=== PATIENT | female | born 1975 | race Caucasian/White ===

== ENCOUNTER → 2022-01-29 14:12 | Outpatient (CLI) | payer BC, SELFPAY ==
--- NOTE | ~2022-01-29 | MM_ITS ---
EXAMINATION: MM screening jossue BI w blue HISTORY: Screening mammogram TECHNIQUE: Craniocaudal and mediolateral oblique 3-D tomosynthesis images were obtained and synthetic 2-D images were generated. CAD analysis was submitted and interpreted. COMPARISON: 06/05/2010 bilateral mammogram. BREAST PARENCHYMAL COMPOSITION: There are scattered areas of fibroglandular density. FINDINGS: There is no evidence of suspicious mass, calcification, or architectural distortion to sugg est malignancy in either breast. There has been no suspicious interval change. IMPRESSION: 1. No mammographic evidence of malignancy. 2. Recommend routine screening mammography in one year. BI-RADS Category 1: Negative Reviewed, dictated and finalized at location A.
== END ==
PROVIDERS: PCP Physician Assistant Medical; Visit Provider Obstetrics & Gynecology Gynecology
DX: Z12.31 Encounter for screening mammogram for malignant neoplasm of breast (principal)
CPT/HCPCS: 77063; 77067

== ENCOUNTER 2023-06-02 12:31 | Outpatient (CLI) | payer BC, SELFPAY ==
--- NOTE | ~2023-06-02 | MR_ITS ---
EXAMINATION: MR cervical spine wo con DATE: 06/02/2023 13:19 INDICATION: Paresthesias of skin. TECHNIQUE: Magnetic resonance imaging (MRI) of the cervical spine was performed without intravenous c ontrast. COMPARISON: None FINDINGS: There is mild kyphosis of cervical spine. Vertebral body heights are normal. There is mildl y decreased disc height at C4-C5, C5-C6, and C6-C7. The spinal cord signal intensity is normal. The f ollowing disc levels are specifically discussed: C2-C3: The disc does not extend beyond the endplate margin. There is no uncovertebral joint osteoarth ritis. There is severe right and mild left facet joint osteoarthritis. There is mild right neural for aminal stenosis. There is no central canal stenosis. C3-C4: The disc does not extend beyond the endplate margin. There is mild bilateral uncovertebral judith nt osteoarthritis. There is mild bilateral facet joint osteoarthritis. There is mild bilateral neural foraminal stenosis. There is no central canal stenosis. C4-C5: The disc is bulging. There is moderate bilateral uncovertebral joint osteoarthritis. There is mild right and severe left facet joint osteoarthritis. There is mild bilateral neural foraminal steno sis. There is mild central canal stenosis. C5-C6: The disc is bulging. There is severe bilateral uncovertebral joint osteoarthritis. There is se farida bilateral facet joint osteoarthritis. There is mild bilateral neural foraminal stenosis. There i s mild central canal stenosis. C6-C7: The disc is bulging. There is mild bilateral uncovertebral joint osteoarthritis. There is carson re bilateral facet joint osteoarthritis. There is mild bilateral neural foraminal stenosis. There is mild central canal stenosis. C7-T1: The disc does not extend beyond the endplate margin. There is no uncovertebral joint osteoarth ritis. There is severe bilateral facet joint osteoarthritis. There is mild bilateral neural foraminal stenosis. There is no central canal stenosis. IMPRESSION: 1. Moderate cervical spondylosis. Reviewed, dictated and finalized at location E. CT MARKETING MANAGER
--- NOTE | ~2023-06-02 | MR_ITS ---
MRI of the brain Clinical History: Headache Technique: Axial and sagittal T1-weighted images were acquired. These were followed by axial T2-weigh tamar, diffusion weighted, gradient, and FLAIR images. Following intravenous administration of 19 cc Mu ltiHance gadolinium, T1-weighted fat-sat imaging was performed in the axial and coronal planes. Findings: There is no acute infarct, intracranial hemorrhage, or mass lesion. There are focal white m atter lesions predominantly in the subcortical white matter, most compatible with chronic microvascul ar ischemic change. Ventricles and subarachnoid spaces are unremarkable. Orbits are unremarkable. Paranasal sinuses and m astoid air cells are clear. Major intracranial flow voids are intact. Sagittal midline structures are intact. No abnormal postcontrast enhancement identified. IMPRESSION: No acute abnormality evident. Probable mild chronic microvascular ischemic changes. Correlate for any possibility of demyelinating disease, though this is felt to be less likely. Reviewed, dictated and finalized at [facility]. NE CONTENT EDITOR IMPRESSION: No acute abnormality evident. Probable mild chronic microvascular ischemic changes. Correlate for any possibi lity of demyelinating disease, though this is felt to be less likely.
== END 2023-06-02 12:32 ==
LOC: MICIMG 12:32
PROVIDERS: PCP Physician Assistant Medical; Visit Provider Physician Assistant Medical
DX: G44.53 Primary thunderclap headache (principal); R20.2 Paresthesia of skin; M47.22 Other spondylosis with radiculopathy, cervical region
CPT/HCPCS: 70553; 72141; A9577

== ENCOUNTER 2024-02-25 13:45 | Outpatient (CLI) | payer BC, SELFPAY ==
--- NOTE | ~2024-02-25 | MM_ITS ---
EXAMINATION: MM screening [facility] BI w blue HISTORY: Screening TECHNIQUE: Craniocaudal and mediolateral oblique 3-D tomosynthesis images were obtained and synthetic 2-D images were generated. CAD analysis was submitted and interpreted. COMPARISON: 01/29/2022 BREAST PARENCHYMAL COMPOSITION: Not dense: There are scattered areas of fibroglandular density. FINDINGS: There is a new mass in the upper outer quadrant of the right breast, middle third, which is partially obscured by fibroglandular tissue. The left breast is stable without evidence for malignan cy. IMPRESSION: 1. New right breast mass upper outer quadrant, middle third. 2. Additional mammographic views and possible breast ultrasound are recommended. BI-RADS Category 0: Incomplete: Needs additional imaging evaluation. Reviewed, dictated and finalized at location B. IMPRESSION: 1. New right breast mass upper outer quadrant, middle third. 2. Additional mammographic views and possible breast ultrasound are recommended . BI-RADS Category 0: Incomplete: Needs additional imaging evaluation.
== END 2024-02-25 13:46 | disposition home or self-care (01) ==
PROVIDERS: PCP Physician Assistant Medical; Visit Provider Physician Assistant Medical
DX: Z12.31 Encounter for screening mammogram for malignant neoplasm of breast (principal); R92.8 Other abnormal and inconclusive findings on diagnostic imaging of breast
CPT/HCPCS: 77063; 77067

== ENCOUNTER 2024-03-07 13:35 | Outpatient (CLI) | payer BC, SELFPAY ==
--- NOTE | ~2024-03-07 | XR_ITS ---
3 VIEWS LUMBAR SPINE Ordering provider: Sam Selby MD History: . M54.9 - Dorsalgia, unspecified . Comparison: April 13, 2013 FINDINGS: VERTEBRAL BODIES: No visible fracture or subluxation. Degenerative changes of the spine. DISK SPACES: Narrowing of the disc L2-L3, L3-L4, L4-L5 and L5-S1. Facet joint disease of the level of L4-L5 and L5-S1. SOFT TISSUES: Normal. IMPRESSION: No acute osseous abnormality lumbar spine. Multilevel degenerative disc disease. Reviewed, dictated and finalized at location A.
== END 2024-03-07 13:36 | disposition home or self-care (01) ==
LOC: MICIMG 13:36
PROVIDERS: PCP Physician Assistant Medical; Visit Provider Anesthesiology Pain Medicine
DX: M51.369 Other intervertebral disc degeneration, lumbar region without mention of lumbar back pain or lower extremity pain (principal)
CPT/HCPCS: 72114

== ENCOUNTER 2024-03-13 08:49 | Outpatient (CLI) | payer BC, SELFPAY ==
--- NOTE | ~2024-03-13 | MMUS_ITS ---
EXAMINATION: MM diagnostic jossue RT w blue, US breast RT limited HISTORY: Right breast mass TECHNIQUE: Additional 3-D tomosynthesis images of the right breast were performed and synthetic 2-D i mages were generated. CAD analysis was submitted and interpreted. High resolution limited right breas t ultrasound was performed. COMPARISON: 02/25/2024 BREAST PARENCHYMAL COMPOSITION:Not Dense. There are scattered areas of fibroglandular density. FINDINGS: MAMMOGRAPHIC FINDINGS: Spot compression views demonstrate a persistent circumscribed low-density mass at the upper, outer as pect measuring 7 mm in diameter. ULTRASOUND: At the 10:00 position right breast, 5 cm from the nipple, there is a 7 mm simple anechoic cyst. There is an adjacent 3 mm hypoechoic mass, not definite anechoic. IMPRESSION: 3 mm hypoechoic mass at the 10:00 position right breast, 5 cm from the nipple. Adjacent 5 mm stable cyst. Six-month follow-up ultrasound recommended to reassess. BI-RADS category 3, probably benign findings. Reviewed, dictated and finalized at location . IMPRESSION: 3 mm hypoechoic mass at the 10:00 position right breast, 5 cm from the nipple. Adjacent 5 mm stable cyst. Six-month follow-up ultrasound recommended to reass ess. BI-RADS category 3, probably benign findings.
== END 2024-03-13 08:50 | disposition home or self-care (01) ==
LOC: CHSIMG 08:53
PROVIDERS: PCP Physician Assistant Medical; Visit Provider Physician Assistant Medical
DX: N63.10 Unspecified lump in the right breast, unspecified quadrant (principal)
CPT/HCPCS: 76642; 77061; 77065; G0279

== ENCOUNTER 2024-09-11 13:27 | Outpatient (CLI) | payer BC, SELFPAY ==
--- NOTE | ~2024-09-11 | US_ITS ---
EXAMINATION TYPE: US breast RT limited COMPARISON: 03/05/2024 REASON FOR STUDY: N63.10 - Unspecified lump in the right breast, unspecifie... TECHNIQUE: Targeted sonographic evaluation of the right breast was performed. INTERPRETATION: There is a 5 mm cyst at the 10:00 position right breast, 5 cm from the nipple. There is an adjacent a dditional 4 mm cyst in this region. IMPRESSION: Stable subcentimeter cysts at the 10:00 position right breast, as above. BI-RADS CATEGORY: BI-RADS 2: Benign Reviewed, dictated and finalized at location .
--- OUTSIDE RECORDS SUMMARY | 2024-09-11 15:15 | XMS_ITS | Encounter Summary ---
Author Organization [facility] Address [address] [place] [address] Care Team Providers Care Cable Supervisor Name Role Phone January Messer Primary Care Provider [phone] Encounter Details Date Type Department Care Team (Latest Contact Info) Description 12/16/2023 [place] [employer] Message Enc [facility] Multispecialty Care - [address], [address] [place] [phone] Franchise Fundt, [facility] Provider SLEEP STUDY RESULTS Social History Tobacco Use Types Packs/Day Years Used Date Smoking Tobacco: Never Smokeless Tobacco: Never Alcohol Use Standard Drinks/Week Comments Yes 0 (1 standard drink = 0.6 oz pur e alcohol) socially Comments No Sex and Gender Information Value Date Recorded Sex Assigned at Not on file Legal Sex Female 7:37 PM CDT Gender Identity Not on file Sexual Orientation Not on file documented as of this encounter Plan of Treatment Not on file documented as of this encounter Visit Diagnoses Not on filedocumented in this encounter Care Teams Cable Supervisor Relationship Specialty Start Date End Date January Messer PA [address] [place] [id number] PCP - General PHYSICIAN BRANCH STORE MANAGER 05/14/22 documented as of this encounter
--- OUTSIDE RECORDS SUMMARY | 2024-09-11 15:15 | XMS_ITS | Clinical Summary ---
Author Organization [facility] Address [address] [place] [address] Care Team Providers Care Transplanter Orchid Name Role Phone Gui Tsang MD Primary Care Provider [phone] Source Comments [facility],non-owned Affiliates and Associated Physician Practices is amultiple site organization consisting of ambulatory clinics and hospital sitesin [place], [place], [place] and [place]. This disclosure is being madepursuant to the Care Everywhere program and may not contain all information available regarding this patient. Last updated 18.[facility] Allergies Active Allergy Reactions Criticality Noted Date Comments Sulfa Drugs Itching Low 03/31/2012 Active Problems Problem Noted Date Diagnosed Date Pain in joint 03/24/2012 Family History Medical History Relation Name Comments Fibromyalgia Maternal Aunt Fibromyalgia Maternal Grandmother Arthritis - Osteo Mother Arthritis - Rheumatoid Mother Fibromyalgia Mother Arthritis - Osteo Other uncle Fibromyalgia Sister Thyroid Disease Sister Relation Name Status Comments Maternal Aunt Maternal Grandmother Mother Other Sister Social History Tobacco Use Types Packs/Day Years Used Date Smoking Tobacco: Never Alcohol Use Standard Drinks/Week Comments Yes 0.8 (1 standard drink = 0.6 oz p ure alcohol) Comments Unknown Sex and Gender Information Value Date Recorded Sex Assigned at Not on file Legal Sex Female 6:48 PM FOOD PROCESSOR Gender Identity Not on file Sexual Orientation Not on file Plan of Treatment Health Maintenance Due Date Last Done Comments COLOGUARD (AGES 45-75) - COL ON CA SCREENING [address] COLONOGRAPHY - COLON CA SCREENING 1976 FIT - COLON CA SCREENING 1976 FLEX SIG - COLON CA SCREENING 1976 LIPID TESTING 1976 MAMMOGRAM 1976 PAP SMEAR 1976 HIV SCREENING 02/11/1991 HEPATITIS C SCREENING 02/07/1994 DTAP/TDAP/TD VACCINES (1 - Tdap) 02/11/1995 HEPATITIS B VACCINE (1 of 3 - 19+ 3-dose series) 02/11/1995 COVID-19 VACCINE (1 - 2023-2 5 season) 2024 DEPRESSION SCREENING 05/17/2024 INFLUENZA VACCINE (Season Ended) 2025 05/02/2009 ZOSTER VACCINE (1 of 2) 02/11/2026 COLONOSCOPY - COLON CA SCREENING 08/10/2033 08/11/2023, 08/11/2023 Colorectal Cancer Screening 08/10/2033 HIB VACCINE Aged Out No longer eligi ble based on patient's age to complete this topic HPV VACCINE Aged Out No longer eligi ble based on patient's age to complete this topic MENINGOCOCCAL (Group B) VACCINE SHARED DECISION-MAKING Aged Out No longer eligible based on patient's age to complete this topic MENINGOCOCCAL GROUPS A/C/Y/W VACCINE Aged Out No longer eligible b ased on patient's age to complete this topic PNEUMOCOCCAL VACCINE Aged Out No long er eligible based on patient's age to complete this topic Care Teams Transplanter Orchid Relationship Specialty Start Date End Date Gui Tsang MD [address] [place] [id number] PCP - General 01/05/12
--- OUTSIDE RECORDS SUMMARY | 2024-09-11 15:15 | XMS_ITS | Encounter Summary ---
Author Organization [facility] Address [address] [place] [address] Care Team Providers Care Welfare Manager Name Role Phone January Messer Primary Care Provider [phone] Encounter Details Date Type Department Care Team (Late st Contact Info) Description 07/05/2024 Therapy Plan [facility] [address] [place], [place] [phone] January Messer PA [address] [place] [address] Social History Tobacco Use Types Packs/Day Years [...] documented as of this encounter Visit Diagnoses Diagnosis Iron deficiency anemia, unspecified iron deficiency anemia type- Primary documented in this encounter Care Teams Welfare Manager Relationship Specialty Start Date End Date January Messer PA [address] [place] [phone] PCP - General PHYSICIAN WOOD MACHINIST 05/14/22 documented as of this encounter
--- OUTSIDE RECORDS SUMMARY | 2024-09-11 15:15 | XMS_ITS | Encounter Summary ---
Author Organization [facility] Address [address] [place] [address] Care Team Providers Care Chassis Mechanic Name Role Phone January Messer Primary Care Provider [phone] Encounter Details Date Type Department Care Team (Late st Contact Info) Description 12/13/2023 [employer] Message [facility] Multispecialty Care - [address], [address] [place] [phone] [employer], [facility] Provider results Social History Tobacco Use Types Packs/Day Years [...] on filedocumented in this encounter Care Teams Chassis Mechanic Relationship Specialty Start Date End Date January Messer PA [address] [place] [id number] PCP - General PHYSICIAN SERVICE DEVELOPER 05/14/22 documented as of this encounter
--- OUTSIDE RECORDS SUMMARY | 2024-09-11 15:15 | XMS_ITS | Clinical Summary ---
Author Organization [facility] Address [address] [place] [address] Care Team Providers Care Service Line Layer Name Role Phone January Messer Primary Care Provider [phone] Allergies Active Allergy Reactions Criticality Noted Date Comments Sulfa Antibiotics Rash Low 11/01/2020 Medications naltrexone-buPR OPion ER (CONTRAVE) 12 hr tablet Take 2 tablets by mouth 2 (two) times daily. Active ALPRAZolam 0.25 MG tablet Take 1 tablet (0.25 mg total) by mouth 3 (three) times daily as needed for Sleep. Active ferrous gluconate (FERGON) 324 (37.5 Fe) MG tablet Take 1 tablet (324 mg total) by mouth daily. 05/05/20 22 Active atorvastatin (LIPITOR) 20 MG tablet Take 1 tablet (20 mg total) by mouth nightly at bedtime. 06/03/19 24 Active carisoprodol (SOMA) 350 MG tablet Take 1 tablet (350 mg total) by mouth 3 (three) times daily as needed for Muscle Spasms. 05/24/19 24 Active HYDROcodone-myranda taminophen (NORCO) 5-325 MG tablet Take 1 tablet by mouth as needed. 05/24/19 24 Active ubrogepant (UBRELVY) 100 MG tabletIndicatio ns:Migraine without aura, not intractable, without status migrainosus Take 1 tablet (100 mg total) by mouth 2 (two) times daily as needed. Max of 2 tablets (200 mg) in 24 hours 16 tablet 11 06/22/19 24 Active Additional Information Patient not taking.Reported on 10/07/2023 Sodium Sulfate-Mag Sulfate-KCl (SUTAB) 7150-067-489 MG TabIndications: Encounter for screening colonoscopy Take 12 tablets by mouth see administration instructions. Take 12 tablets at 5:00pm evening prior to colonoscopy and take 12 tablets at 4:00 am morning of colonoscopy 24 tablet 06/28/19 Active Additional Information Patient not taking.Reported on 09/27/2023 progesterone (PROMETRIUM) 100 MG capsule Take 1 capsule (100 mg total) by mouth nightly at bedtime. at bedtime 10/01/19 Active Elastic Bandages & Supports (WRIST SPLINT/COCK-UP/ LEFT M) MiscIndications :Bilateral carpal tunnel syndrome 1 Units by Does not apply route daily. 1 each 10/08/19 Active Elastic Bandages & Supports (WRIST SPLINT/COCK-UP/ RIGHT M) MiscIndications :Bilateral carpal tunnel syndrome 1 Units by Does not apply route daily. 1 each 10/08/19 Active Active Problems Problem Noted Date Diagnosed Date Iron deficiency anemia, unspecified 07/05/2024 Chronic pain syndrome 04/06/2024 Spinal stenosis, cervical region 04/06/2024 Cervicalgia 04/06/2024 Radiculopathy of lumbar region 04/06/2024 Radiculopathy of cervical region 04/06/2024 Dorsalgia 04/06/2024 Spondylosis without myelopat hy or radiculopathy, cervical region 04/06/2024 Class 1 obesity due to exces s calories without serious comorbidity with body mass index (BMI) of 33.0 to 33.9 in adult 11/01/2020 Assessment & Plan (11/01/2020 2:32 PM CDT): I encouraged lifestyle modifications including diet and exercise. Heart palpitations Assessment & Plan (05/22/2022 9:52 AM DROP WIRE ALINER): Recommend event monitor for 30 days Resting echo Assessment & Plan (11/01/2020 2:29 PM CDT): She did not have any symptoms while wearing the Holter monitor and therefore it was not diagnostic. I recommend 30-day event monitor for further evaluation of her symptoms. I do not think that pharmacologic therapy with either a beta-jennifer or calcium channel jennifer is required at this time. I discussed oncologic therapy with her. Resolved Problems Problem Noted Date Diagnosed Date Resolved Date Encounter for screening colonoscopy 06/28/2023 07/05/2023 Encounters Date Type Department Care Team Description 07/05/[address] [facility] [address] [place] [address] Hugo Coy MD 07/05/2024 Therapy Plan [facility] [address] [place], [place] [phone] January Messer PA from Last 3 Months Immunizations Immunization Administration Dates Next Due H1N1 2009 Influenza Vaccine 05/02/2009 Hepatitis B 09/27/2013 Influenza (FluMist) 12/26/2009 Family History Medical History Relation Comments Heart Attack Father Heart Attack Mother Stent Cardiac Mother Relation Status Comments Father Mother Alive Social History Tobacco Use Types Packs/Day Years Used Date Smoking Tobacco: Never Smokeless Tobacco: Never Tobacco Cessation:Counseling Given: No Alcohol Use Standard Drinks/Week Comments Yes 0 (1 standard drink = 0.6 oz pur e alcohol) socially Comments No Sex and Gender Information Value Date Recorded Sex Assigned at Not on file Legal Sex Female 7:37 PM CDT Gender Identity Not on file Sexual Orientation Not on file Last Filed Vital Signs Vital Sign Reading Time Taken Comments Blood Pressure 103/73 10/07/2023 1:20 PM CDT Pulse 74 10/07/2023 1:20 PM CDT Temperature 36.2 C (97.2 F) 10/07/2023 1:20 PM CDT Respiratory Rate 18 10/07/2023 1:20 PM CDT Oxygen Saturation 97% 10/07/2023 1:20 PM CDT Inhaled Oxygen Concentration - - Weight 96.8 kg (213 lb 6.4 oz) 10/07/2023 1:20 P M CDT Height 162.6 cm (5' 4 ) 10/07/2023 1:20 PM CDT Body Mass Index 36.63 10/07/2023 1:20 PM CDT Plan of Treatment Health Maintenance Due Date Last Done Comments Cervical Cancer Screening Pa p Smear (Age 30 to 64) Every 3 Years 1976 Annual Physical 02/11/1979 Hepatitis C 02/11/1994 DTaP, Tdap and Td Vaccines ( 1 - Tdap) 02/11/1995 Cervical Cancer Screening Pa p with HPV Testing (Age 30 to 64) Every 5 Years 02/11/2006 Cervical Cancer Screening wi th HPV 02/11/2006 Hepatitis B Vaccines (2 of 3 - 19+ 3-dose series) 10/25/2013 09/27/2013 Mammogram Screening 2016 ASCVD LDL 01/01/2024 12/31/2022, 09/19/2020 COVID-19 Vaccine (3 - 2023-2 5 season) 2024 06/05/2020, 05/15/2020 PHQ-2 (Physician [place]) 05/17/2024 Colorectal Cancer Screening Colonoscopy (10 Years) 08/10/2033 08/11/2023, 08/11/2023 Meningococcal B Vaccine Aged Out No l onger eligible based on patient's age to complete this topic Meningococcal Vaccine Aged Out No madelin yusuf eligible based on patient's age to complete this topic Pneumococcal Vaccine: Pediatrics (0 to 5 Years) and At-Risk Patients (6 to 49 Years) Aged Out No longer eligible b ased on patient's age to complete this topic RSV Immunizations Under 20 Months Aged Out No longer eligible b ased on patient's age to complete this topic Procedures Procedure Name Priority Date/Time Associated Diagnosis Comments COLONOSCOPY Routine 08/11/2023 8:36 AM CDT LIPID PANEL Routine 12/31/2022 from Last 3 Months or Most Recently Relevant to Health Maintenance Results * LIPID PANEL (12/31/2022) CHOLESTEROL 210 TRIGLYCERIDES 96 HDL 60 LDL (CALCULATED) 130 NON HDL CHOLESTEROL 150 us Default History Genericprovider LABORATORY Final Result from Last 3 Months or Most Recently Relevant to Health Maintenance Insurance [place] [address] Care Teams Service Line Layer Relationship Specialty Start Date End Date January Messer PA [address] [place] [address] PCP - General PHYSICIAN ESCROW AGENT 05/14/22
--- OUTSIDE RECORDS SUMMARY | 2024-09-11 15:15 | XMS_ITS | Encounter Summary ---
Author Organization [facility] Address [address] [place] [address] Care Team Providers Care Manager Of Revenue Name Role Phone Gui Tsang MD Primary Care Provider [phone] January Messer Primary Care Provider [phone] Encounter Details Date Type Department Care Team (Late st Contact Info) Description 09/11/[address] [facility] CONVERSION [address] [place] [address] , Generic MD Radha Social History Tobacco Use Types Packs/Day Years Used Date Smoking Tobacco: Never Assessed Comments Unknown Sex and Gender Information Value Date Recorded Sex Assigned at Not on file Legal Sex Female 7:37 PM CDT Gender Identity Not on file Sexual Orientation Not on file documented as of this encounter Plan of Treatment Not on file documented as of this encounter Visit Diagnoses Not on filedocumented in this encounter Care Teams Manager Of Revenue Relationship Specialty Start Date End Date Gui Tsang MD [address] [place] [phone] PCP - General INTERNAL MEDICINE 04/29/20 05/13/22 January Messer PA [address] [place] [id number] PCP - General PHYSICIAN ELECTRICIAN ASSISTANT 05/14/22 documented as of this encounter
--- OUTSIDE RECORDS SUMMARY | 2024-09-11 15:15 | XMS_ITS | Clinical Summary ---
Author Organization [facility] Address [address] [place] [address] Phone Care Team Providers Care Oxyhydrogen Welder Name Role Phone Unavailable Primary Care Provider Unavailabl e Allergies Active Allergy Reactions Criticality Noted Date Comments Sulfa Antibiotics Itching High 09/20/2009 Medications Multiple Vitamin (MULTIVITAMIN PO) Take 1 Tab by mouth daily. Active Nisswa-3 Fatty Acids (FISH OIL PO) Take 2 Tabs by mouth 3 times daily. Active alprazolam 0.5 MG PO TABSIndications: Generalized anxiety disorder Take 1 Tab by mouth as needed. 30 Tab 0 10/23/2009 Active Flaxseed, Linseed, (FLAX SEED OIL) 1000 MG PO CAPS Take 1 Tab by mouth daily. Active Phentermine HCl 15 MG PO CAPSIndications: Obesity Take 1 Cap by mouth daily. 30 Cap 1 12/26/2009 Active metFORMIN 500 MG PO TABSIndications: PCOS (polycystic ovarian syndrome) Take 1 Tab by mouth daily. 90 Tab 1 12/26/2009 Active Active Problems Problem Noted Date Diagnosed Date PCOS (polycystic ovarian syndrome) Immunizations Immunization Administration Dates Next Due PUR FLU INTRANASAL 12/26/2009 Family History Medical History Relation Name Comments Alcohol Abuse Father Cancer Maternal Aunt Diabetes Mother Hypertension Mother Osteoarthritis Mother Rheumatoid Arthritis Mother Cancer Paternal Grandmother Relation Name Status Comments Father Maternal Aunt Mother Paternal Grandmother Social History Tobacco Use Types Packs/Day Years Used Date Smoking Tobacco: Former Comments:smoked as a teenage r, non since Alcohol Use Standard Drinks/Week Comments Yes 0.8 (1 standard drink = 0.6 oz p ure alcohol) Sexually Active Control Partners Comments Yes Surgical Male Tubal Ligation 04/27/08 Comments No Sex and Gender Information Value Date Recorded Sex Assigned at Not on file Legal Sex Female 3:47 AM BUSINESS DIVISION CHAIR Gender Identity Not on file Sexual Orientation Not on file 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 Not on file Not on file Not on file Last Filed Vital Signs Vital Sign Reading Time Taken Comments Blood Pressure 104/76 12/26/2009 11:26 AM CDT Pulse 80 12/26/2009 11:26 AM CDT Temperature 36.9 C (98.4 F) 09/25/2009 9:00 AM CDT Respiratory Rate - - Oxygen Saturation - - Inhaled Oxygen Concentration - - Weight 95.2 kg (209 lb 12.8 oz) 010 11:26 AM CDT Height 165.1 cm (5' 5 ) 10/23/2009 11:2 7 AM CDT Body Mass Index 34.91 10/23/2009 11:27 AM CDT Plan of Treatment Health Maintenance Due Date Last Done Comments Hepatitis C Virus (HCV) Screening 1976 TdaP Immunization 1976 Hepatitis B Immunization (1 of 3 - 19+ 3-dose series) 02/11/1995 Pap Smear 02/11/1997 Cervical Cancer Screening (CCS) 02/11/2006 HPV/Cotest 02/11/2006 Discussion re Starting/Frequ ency of Mammograms 2016 Colonoscopy 02/11/2021 Colorectal Cancer Screening 02/11/2021 Influenza Immunization (#1) 2024 12/26/2009 SARS-COV-2 Immunization ( season) 2024 Respiratory Syncytial Virus (RSV) Immunization (Adult) (1 - 1-dose 75+ series) 02/11/2051 Meningococcal Immunization (ACWY) Aged Out No longer eligible based on patient's age to complete this topic Pneumococcal Immunization Combined Aged Out No longer eligible based on patient's age to complete this topic Rotavirus Immunization Aged Out No lo nger eligible based on patient's age to complete this topic Insurance [employer] Advance Directives * No Code Status (Latest Code Status on File) Date Activated Date Inactivated Comments 09/20/2009 2:49 PM not at this destinee e.
--- OUTSIDE RECORDS SUMMARY | 2024-09-11 15:15 | XMS_ITS | Encounter Summary ---
Author Organization [facility] Address [address] [place] [id number] Care Team Providers Care Mechanical Reliability Engineer Name Role Phone Gui Tsang MD Primary Care Provider [phone] January Messer Primary Care Provider [phone] Encounter Details Date Type Department Care Team (Late st Contact Info) Description 10/31/2020 Abstract [facility] [address] Ovidio Hernandez MA Social History Tobacco Use Types Packs/Day Years Used Date Smoking Tobacco: Never Assessed Comments Unknown Sex and Gender Information Value Date Recorded Sex Assigned at Not on file Legal Sex Female 7:37 PM CDT Gender Identity Not on file Sexual Orientation Not on file COVID-19 Exposure Response Date Recorded In the last month, have you been in contact with someone who was confirmed or suspected to have Coronavirus / COVID-19? Unable to assess 11/01/2020 2:42 PM CDT documented as of this encounter Plan of Treatment Not on file documented as of this encounter Procedures Procedure Name Priority Date/Time Associated Diagnosis Comments COMPREHENSIVE METABOLIC PANEL Routine 12/31/2022 LIPID PANEL Routine 12/31/2022 CBC, MANUAL DIFF Routine 12/31/2022 THYROID STIM HORMONE TSH Routine 12/31/2022 VITAMIN D, 25 OH Routine 12/31/2022 MAGNESIUM Routine 12/31/2022 CBC (OUTSIDE LAB) Routine 09/19/2020 VITAMIN B-12 Routine 09/19/2020 TRIIODOTHYRONINE TOTAL , TT-3 Routine 09/19/2020 COMPREHENSIVE METABOLIC PANEL Routine 09/19/2020 LIPID PANEL Routine 09/19/2020 THYROXINE, FREE (FT4) Routine 09/19/2020 THYROID STIM HORMONE TSH Routine 09/19/2020 VITAMIN D, 25 OH Routine 09/19/2020 MAGNESIUM Routine 09/19/2020 documented in this encounter Results * VITAMIN D, 25 OH (12/31/2022) VITAMIN D 25 HYDROXY S/P/B 27 12/31/2022 us Default History Genericprovider LABORATORY Final Result * COMPREHENSIVE METABOLIC PANEL (12/31/2022) SODIUM S/P/B 138 GLUCOSE 89 mg/dL AST 17 BUN 9 CREATININE S/P/B 0.67 0.5 - 1.0 CALCIUM S/P/B 8.9 POTASSIUM S/P/B 4.5 CHLORIDE S/P/B 104 ALT 15 GFR ESTIMATE 109 us Default History Genericprovider LABORATORY Final Result * LIPID PANEL (12/31/2022) CHOLESTEROL 210 TRIGLYCERIDES 96 HDL 60 LDL (CALCULATED) 130 NON HDL CHOLESTEROL 150 us Default History Genericprovider LABORATORY Final Result * CBC, MANUAL DIFF (12/31/2022) [facility] WBC 6.1 HGB 11.3 HCT 35.1 PLT 346 Default History Genericprovider LABORATORY Final Result * THYROID STIM HORMONE TSH (12/31/2022) [facility] TSH 1.41 Default History Genericprovider LABORATORY Final Result * MAGNESIUM (12/31/2022) [facility] MAGNESIUM 1.9 Default History Genericprovider LABORATORY Final Result * VITAMIN D, 25 OH (09/19/2020) [facility] VITAMIN D 25 HYDROXY S/P/B 25 09/19/2020 us Doc [facility] LABORATORY Final Result * VITAMIN B-12 (09/19/2020) [facility] VITAMIN B12 S/P/B 389 200 - 1,100 09/19/2020 us Doc [facility]ORAT[facility] Final Result * CBC (OUTSIDE LAB) (09/19/2020) [facility] WBC 5.8 HGB 11.4 HCT 35.1 PLT 343 09/19/2020 us Doc [facility] LAB-OUTSIDE/ABSTRACTED Final Result * TRIIODOTHYRONINE TOTAL , TT-3 (09/19/2020) [facility] T3 TOTAL 94 76 - 181 09/19/2020 us Doc [facility] Final Result * THYROXINE, FREE (FT4) (09/19/2020) [facility] FREE T4 1.0 0.8 - 1.8 09/19/2020 us Doc [facility]AT[facility] Final Result * THYROID STIM HORMONE, TSH (09/19/2020) [facility] TSH 1.15 1.5 - 2.5 09/19/2020 us Doc [facility] LABORAT[facility] Final Result * MAGNESIUM (09/19/2020) [facility] MAGNESIUM 1.8 09/19/2020 us Doc [facility]ORAT[facility] Final Result * (ABNORMAL) COMPREHENSIVE METABOLIC PANEL (09/19/2020) [facility] SODIUM S/P/B 138 POTASSIUM S/P/B 4.3 CO2 26 CHLORIDE S/P/B 104 GLUCOSE 96 mg/dL CALCIUM S/P/B 9.1 BUN 6 CREATININE S/P/B 0.76 0.5 - 1.0 EGFR AFR. AMER. 111(A) <=90 EGFR NON-AFR. AMER. 95(A) <=90 ALKALINE PHOSPHATASE S/P/B 66 ALT 11 AST 14 BILIRUBIN TOTAL S/P/B 0.4 ALBUMIN S/P/B 4.3 3.5 - 5.0 TOTAL PROTEIN S/P/B 6.5 GLOBULIN 2.2 09/19/2020 us Doc [facility] Final Result * LIPID PANEL (09/19/2020) [facility] CHOLESTEROL 207 HDL 54 TRIGLYCERIDES 113 NON HDL CHOLESTEROL 153 LDL (CALCULATED) 131 09/19/2020 us Doc [facility] Final Result documented in this encounter Visit Diagnoses Not on filedocumented in this encounter Care Teams Mechanical Reliability Engineer Relationship Specialty Start Date End Date Gui Tsang MD [address] [place] [id number] PCP - General INTERNAL MEDICINE 04/29/20 05/13/22 January Messer PA [address] [place] [id number] PCP - General PHYSICIAN MEDICAL PHYSICIST 05/14/22 documented as of this encounter
--- OUTSIDE RECORDS SUMMARY | 2024-09-11 15:15 | XMS_ITS | Encounter Summary ---
Author Organization [facility] Address [address] [place] [address] Care Team Providers Care Glass Sander Belt Name Role Phone Gui Tsang MD Primary Care Provider [phone] January Messer Primary Care Provider [phone] Encounter Details Date Type Department Care Team (Late st Contact Info) Description 08/30/2015 Abstract [facility] CONVERSION [id number] [place] [address] , Generic MD Radha Social History Tobacco [...] on filedocumented in this encounter Care Teams Glass Sander Belt Relationship Specialty Start Date End Date Gui Tsang MD [address] [place] [id number] PCP - General INTERNAL MEDICINE 04/29/20 05/13/22 January Messer PA [address] [place] [id number] PCP - General PHYSICIAN SULFONATION EQUIPMENT OPERATOR 05/14/22 documented as of this encounter
== END 2024-09-11 13:28 | disposition home or self-care (01) ==
PROVIDERS: PCP Physician Assistant Medical; Visit Provider Physician Assistant Medical
DX: N63.11 Unspecified lump in the right breast, upper outer quadrant (principal)
CPT/HCPCS: 76642